=== PATIENT | male | born 1965 | race Caucasian/White ===

== ENCOUNTER 2016-12-27 07:22 | Emergency (ER) | payer BC ==
[~2016-12-27] VITALS: Ht 182.9 cm; Wt 99.8 kg
[2016-12-27 07:23] VITALS: BP_SYST 115
[2016-12-27 08:07] VITALS: BP_SYST 102
== END 2016-12-27 08:07 | disposition home or self-care (01) ==
LOC: SED 07:51
DX: R55 Syncope and collapse (principal); E16.2 Hypoglycemia, unspecified
CPT/HCPCS: 93005; 99283